=== PATIENT | female | born 1955 | race Caucasian/White ===

== ENCOUNTER 2023-10-24 16:39 | Emergency (ER) | payer OTHER ==
[~2023-10-24] VITALS: Ht 162.6 cm; Wt 90.7 kg
[2023-10-24 17:32] VITALS: BP 153/61; PULSE 58; RESP 16; TEMP 98.4
[2023-10-24 18:00] VITALS: O2SAT 98
[2023-10-24] MEDS: HYDROcodone/APAP 5/325 MG 1 TAB TAB PO ONE (20:20)
[2023-10-24 20:21] VITALS: BP 147/67; PULSE 62; RESP 18; TEMP 98.2; O2SAT 98
[2023-10-24] MEDS ORDERED: TRAM50TA3 PO (21:27)
== END 2023-10-24 21:34 | disposition home or self-care (01) ==
LOC: MED 16:39
DX: S33.5XXA Sprain of ligaments of lumbar spine, initial encounter (principal); I10 Essential (primary) hypertension; Z86.718 Personal history of other venous thrombosis and embolism; Z79.899 Other long term (current) drug therapy; W18.39XA Other fall on same level, initial encounter; Y92.89 Other specified places as the place of occurrence of the external cause; Y93.89 Activity, other specified; Y99.8 Other external cause status
CPT/HCPCS: 72110; 99283